=== PATIENT | female | born 1985 | race Caucasian/White ===

== ENCOUNTER 2016-12-24 10:13 | Inpatient (IN) | payer BC ==
[2016-12-24] VITALS (10 sets, daily range): BP systolic 88–120; BP diastolic 43–74
[~2016-12-24] VITALS: Ht 154.9 cm; Wt 117.9 kg
[2016-12-24] MEDS ORDERED: KETOROLAC TROMETHAMINE 30 MG/ML INJ. IV ONE (10:30)
[2016-12-24] MEDS ORDERED: IV NORMAL SALINE 1000ML BAG 1,000 ML IV ONE ×2 (10:30→14:00)
[2016-12-24] MEDS ORDERED: ONDANSETRON PF 4 MG/2 ML VIAL. IV ONE (10:30)
[2016-12-24 10:58] LABS: BASO # 0.1 x10^3/uL (0.0-0.2); BASO % 1 % (0-3); EOS % 1 % (0-3); HEMATOCRIT 36.6 % (36.0-47.0); HEMOGLOBIN 12.3 g/dL (12.0-15.5); LYMPH # 1.2 x10^3/uL (1.0-4.8); LYMPH % 11 % (24-48); MEAN CORPUSCULAR HEMOGLOBIN 26 pg (25-35); MEAN CORPUSCULAR HGB CONC 34 g/dL (31-37); MEAN CORPUSCULAR VOLUME 79 fL (79-100); MONO % 6 % (0-9); NEUT % 81 % (31-73); PLATELET COUNT 226 x10^3/uL (140-400); RED BLOOD COUNT 4.66 x10^6/uL (3.50-5.40); RED CELL DISTRIBUTION WIDTH 15.5 % (11.5-14.5); WHITE BLOOD COUNT 11.9 x10^3/uL (4.0-11.0)
[2016-12-24 11:00] LABS: BILIRUBIN,URINE NEGATIVE (NEG); GLUCOSE,URINE NEGATIVE (NEG); NITRITE,URINE NEGATIVE (NEG); PH,URINE 6.5; PROTEIN,URINE NEGATIVE (NEG-TRACE); UROBILINOGEN,URINE 0.2 mg/dL (0.2 mg/dL)
[2016-12-24 11:05] LABS: CALCIUM 8.8 mg/dL (8.5-10.1); CREATININE 0.9 mg/dL (0.6-1.0); GFR 72.6
[2016-12-24 11:11] LABS: ALBUMIN 3.5 g/dL (3.4-5.0); ALBUMIN/GLOBULIN RATIO 0.8 (1.0-1.7); TOTAL BILIRUBIN 0.5 mg/dL (0.2-1.0); TOTAL PROTEIN 7.9 g/dL (6.4-8.2)
[2016-12-24 11:16] LABS: BACTERIA,URINE FEW /HPF (0-FEW); RBC,URINE OCC /HPF (0-2); SQUAMOUS EPITHELIAL CELL,UR MANY /LPF; WBC,URINE OCC /HPF (0-4)
[2016-12-24] MEDS ORDERED: IOHEXOL 300 MG/ML 75 ML VIAL IV ONE (11:30)
[2016-12-24] MEDS ORDERED: CONTRAST GIVEN MC PRN (11:30)
--- NOTE | 2016-12-24 11:53 | PHYS DOC ---
Past Medical History Past Medical History: No Pertinent History Past Surgical History: Additional Past Surgical Histo: UTERINE POLUPS REMOVED Alcohol Use: None Drug Use: None Adult General Chief Complaint Chief Complaint: ABDOMINAL PAIN HPI HPI Patient is a 31 year old female who presents with mild bilateral upper abdominal pain radiating into the right lower quadrant that began this morning. Patient is also complaining of nausea with no vomiting with this pain. Denies any fever. Denies any chance she is . Denies any urgency frequency dysuria. Denies any chance she is . Denies any unusual vaginal discharge. Denies concerns for STDs. Review of Systems Review of Systems Constitutional: Denies fever or chills [] Eyes: Denies change in visual acuity, redness, or eye pain [] HENT: Denies nasal congestion or sore throat [] Respiratory: Denies cough or shortness of breath [] Cardiovascular: No additional information not addressed in HPI [] GI: Bilateral upper abdominal pain radiating to the right lower quadrant : Denies dysuria or hematuria [] Musculoskeletal: Denies back pain or joint pain [] Integument: Denies rash or skin lesions [] Neurologic: Denies headache, focal weakness or sensory changes [] Endocrine: Denies polyuria or polydipsia [] Current Medications Current Medications Current Medications Medications (Trade) Dose Ordered Sig/Gaudencio Start Time Stop Time Status Last Admin Dose Admin Bupivacaine HCl/ Epinephrine Bitart (Sensorcain-Mpf Epi 0.5%-1:217312) 30 ml STK-MED ONCE 12/24/16 14:36 12/24/16 14:37 DC Cefoxitin Sodium 100 ml @ As Directed STK-MED ONCE 12/24/16 14:56 12/24/16 14:57 DC Ceftriaxone Sodium 1 gm/ Sodium Chloride 50 ml @ 100 mls/hr Q24H 12/25/16 14:00 Ceftriaxone Sodium 2 gm/ Sodium Chloride 100 ml @ 200 mls/hr 1X ONCE 12/24/16 15:15 12/24/16 15:44 Ceftriaxone Sodium 50 ml @ 100 mls/hr ONCE ONCE 12/24/16 14:03 12/24/16 14:32 DC Cellulose 1 each STK-MED ONCE 12/24/16 14:35 12/24/16 14:36 DC Enoxaparin Sodium (Lovenox 40mg Syringe) 40 mg Q24H 12/24/16 15:30 UNV Fentanyl Citrate (Fentanyl 5ml Vial) 250 mcg STK-MED ONCE 12/24/16 14:49 12/24/16 14:50 DC Hydromorphone HCl (Dilaudid) 0.2 mg PRN Q1HR PRN 12/24/16 15:30 UNV Info (Do NOT chart on this entry -- for MONITORING) 1 each PRN DAILY PRN 12/24/16 11:30 12/26/16 11:29 Iohexol (Omnipaque 300 Mg/ml) 75 ml 1X ONCE 12/24/16 11:30 12/24/16 11:31 DC 12/24/16 11:58 75 ML Ketorolac Tromethamine (Toradol) 30 mg PRN Q6HRS PRN 12/24/16 15:30 12/29/16 15:29 UNV Metoclopramide HCl (Reglan) 10 mg PRN Q6HRS PRN 12/24/16 15:30 UNV Metronidazole 100 ml @ 100 mls/hr ONCE ONCE 12/24/16 14:15 12/24/16 15:14 DC Midazolam HCl (Versed) 2 mg STK-MED ONCE 12/24/16 14:58 12/24/16 14:59 DC Morphine Sulfate 4 mg PRN Q2HR PRN 12/24/16 14:00 12/25/16 13:59 Ondansetron HCl (Zofran) 4 mg PRN Q6HRS PRN 12/24/16 15:30 UNV Oxycodone/ Acetaminophen (Percocet 5/325) 2 tab PRN Q4HRS PRN 12/24/16 15:30 UNV Senna/Docusate Sodium (Senna Plus) 1 tab BID 12/24/16 21:00 UNV Sodium Chloride 1,000 ml @ 100 mls/hr Q10H 12/24/16 15:16 UNV Sodium Chloride (Normal Saline Flush) 3 ml QSHIFT PRN 12/24/16 15:30 UNV Allergies Allergies Allergies Coded Allergies Type Severity Reaction Last Updated Verified No Known Drug Allergies 12/24/16 No Physical Exam Physical Exam Constitutional: Well developed, well nourished, no acute distress, non-toxic appearance. [] HENT: Normocephalic, atraumatic, bilateral external ears normal, oropharynx moist, no oral exudates, nose normal. [] Eyes: PERRLA, EOMI, conjunctiva normal, no discharge. [] Neck: Normal range of motion, no tenderness, supple, no stridor. [] Cardiovascular:Heart rate regular rhythm, no murmur [] Lungs & Thorax: Bilateral breath sounds clear to auscultation [] Abdomen: Rounded abdomen. Bowel sounds normal, soft, mild tenderness to the right lower quadrant, no right upper quadrant tenderness, positive psoas sign, positive obturator sign, no guarding no masses, no pulsatile masses. [] Skin: Warm, dry, no erythema, no rash. [] Back: No tenderness, no CVA tenderness. [] Extremities: No tenderness, no cyanosis, no clubbing, ROM intact, no edema. [] Neurologic: Alert and oriented X 3, normal motor function, normal sensory function, no focal deficits noted. [] Psychologic: Affect normal, judgement normal, mood normal. [] Current Patient Data Vital Signs Vital Signs Date Time Temp Pulse Resp B/P (MAP) Pulse Ox O2 Delivery O2 Flow Rate FiO2 12/24/16 14:00 98.1 80 15 157/97 99 98.1 12/24/16 12:22 Room Air Lab Values Laboratory Tests Test 12/24/16 09:40 12/24/16 10:45 POC Urine HCG, Qualitative Hcg negative (Negative) White Blood Count 11.9 x10^3/uL (4.0-11.0) H Red Blood Count 4.66 x10^6/uL (3.50-5.40) Hemoglobin 12.3 g/dL (12.0-15.5) Hematocrit 36.6 % (36.0-47.0) Mean Corpuscular Volume 79 fL (79-100) Mean Corpuscular Hemoglobin 26 pg (25-35) Mean Corpuscular Hemoglobin Concent 34 g/dL (31-37) Red Cell Distribution Width 15.5 % (11.5-14.5) H Platelet Count 226 x10^3/uL (140-400) Neutrophils (%) (Auto) 81 % (31-73) H Lymphocytes (%) (Auto) 11 % (24-48) L Monocytes (%) (Auto) 6 % (0-9) Eosinophils (%) (Auto) 1 % (0-3) Basophils (%) (Auto) 1 % (0-3) Neutrophils # (Auto) 9.7 x10^3uL (1.8-7.7) H Lymphocytes # (Auto) 1.2 x10^3/uL (1.0-4.8) Monocytes # (Auto) 0.7 x10^3/uL (0.0-1.1) Eosinophils # (Auto) 0.1 x10^3/uL (0.0-0.7) Basophils # (Auto) 0.1 x10^3/uL (0.0-0.2) Urine Collection Type Clean catch Urine Color Yellow Urine Clarity Clear Urine pH 6.5 Urine Specific Hughes 1.015 Urine Protein Negative mg/dL (NEG-TRACE) Urine Glucose (UA) Negative mg/dL (NEG) Urine Ketones (Stick) Negative mg/dL (NEG) Urine Blood Negative (NEG) Urine Nitrite Negative (NEG) Urine Bilirubin Negative (NEG) Urine Urobilinogen Dipstick 0.2 mg/dL (0.2 mg/dL) Urine Leukocyte Esterase Negative (NEG) Urine RBC Occ /HPF (0-2) Urine WBC Occ /HPF (0-4) Urine Squamous Epithelial Cells Many /LPF Urine Bacteria Few /HPF (0-FEW) Urine Mucus Marked /LPF Sodium Level 141 mmol/L (136-145) Potassium Level 4.0 mmol/L (3.5-5.1) Chloride Level 104 mmol/L (98-107) Carbon Dioxide Level 25 mmol/L (21-32) Anion Gap 12 (6-14) Blood Urea Nitrogen 9 mg/dL (7-20) Creatinine 0.9 mg/dL (0.6-1.0) Estimated GFR (Cockcroft-Gault) 72.6 BUN/Creatinine Ratio 10 (6-20) Glucose Level 102 mg/dL (70-99) H Calcium Level 8.8 mg/dL (8.5-10.1) Total Bilirubin 0.5 mg/dL (0.2-1.0) Aspartate Amino Transferase (AST) 16 U/L (15-37) Alanine Aminotransferase (ALT) 28 U/L (14-59) Alkaline Phosphatase 68 U/L (46-116) Total Protein 7.9 g/dL (6.4-8.2) Albumin 3.5 g/dL (3.4-5.0) Albumin/Globulin Ratio 0.8 (1.0-1.7) L Lipase 105 U/L (73-393) Laboratory Tests 12/24/16 10:45 Laboratory Tests 12/24/16 10:45 EKG EKG [] Radiology/Procedures Radiology/Procedures [] Course & Med Decision Making Course & Med Decision Making Pertinent Labs and Imaging studies reviewed. (See chart for details) Patient is in the ED with complaints of bilateral upper abdominal pain radiating into the right lower quadrant that began this morning. Negative urine hCG, urine analysis is negative for infection. CBC with a WBC of 11.9 and a slight left shift. CMP would not acute findings. CT of the abdomen and pelvic was noted for acute appendicitis with no abscess. Consulted with Dr. Raza who accepted patient for admission. Patient was started on antibiotics and IV fluids. Dragon Disclaimer Dragon Disclaimer This electronic medical record was generated, in whole or in part, using a voice recognition dictation system. Departure Departure Impression: Primary Impression: Appendicitis, acute Disposition: 09 ADMITTED INPATIENT Condition: STABLE Referrals: NON,STAFF (PCP) Problem Qualifiers Primary Impression: Appendicitis, acute Acute appendicitis type: unspecified acute appendicitis type Qualified Codes : K35.80 - Unspecified acute appendicitis KEIKO HARGROVE WASTE CHOPPER Dec 24, 2016 11:53
--- NOTE | 2016-12-24 12:28 | RAD ---
CT of the abdomen and pelvis with contrast, 12/24/2016: History: Abdominal pain Multidetector CT imaging was performed following an IV bolus injection of iodinated contrast material. No IV contrast was administered for this study. No hepatic abnormality is detected. The gallbladder is unremarkable. The pancreas shows no abnormality. The spleen is within normal limits in size. The kidneys are unremarkable. The abdominal aorta is unremarkable. No abdominal or pelvic adenopathy is seen. A portion of the appendix is mildly enlarged measuring 11 mm in width. There is mild streaky increased density in the periappendiceal fat compatible with inflammation. The appearance suggests acute appendicitis. The bowel loops are not dilated. No free air or significant free fluid is evident in the abdomen or pelvis. IMPRESSION: Acute appendicitis. PQRS Compliance Statement: One or more of the following individualized dose reduction techniques were utilized for this examination: 1. Automated exposure control 2. Adjustment of the mA and/or kV according to patient size 3. Use of iterative reconstruction technique
[2016-12-24] MEDS ORDERED: MORPHINE SULFATE 4 MG/ML DISP.SYRIN. IV PRN (14:00)
[2016-12-24] MEDS ORDERED: ONDANSETRON PF 4 MG/2 ML VIAL. IV PRN ×3 (14:00→16:30)
[2016-12-24] MEDS ORDERED: SURGICEL HEMOSTAT 4X8 EACH. ONE (14:35)
[2016-12-24] MEDS ORDERED: BUPIVAC MPF-EPI 0.5%-1:200000 30 ML VIAL. ONE (14:36)
--- NOTE | 2016-12-24 14:40 | ACF ---
Admit Criteria Forms Admit Criteria Forms Admit Criteria Forms ABDOMINAL PAIN Clinical Indications for Admission to Inpatient Care ( kashia/check or initial the applicable condition/criteria): Admission is indicated for ANY ONE of the following (1)(2)(3)(4)(5)(6): [ ]I. Surgery needed that cannot be performed on ambulatory basis [ ]II. Peritoneal signs present (eg, rebound tenderness, rigidity) [ ]III. Evaluation requires patient to not eat or drink for extended period ( eg, more than 24 hours). [X ]IV. Inpatient admission required[B] rather than observation care (see Abdominal Pain: Observation Care guideline as appropriate) because of ANY ONE of the following(7)(8)(9): [ ] a) Hemodynamic instability [ ]b) Severe pain requiring acute inpatient management [X ]c) Identification of etiology or finding that requires inpatient care (eg, aortic dissection, free air,bowel ischemia)(10) [ ]d) Absent bowel sounds with complete ileus (11) [ ]e) Signs of intestinal obstruction[C] [ ]f) Suspected toxic megacolon [ ]g) Severe electrolyte abnormalities requiring inpatient care [ ]h) High fever or infection requiring inpatient admission as indicated by ANY ONE of the following (12)(13): [ ]i) Appropriate outpatient or observation care antimicrobial treatment unavailable, not effective, or not feasible [ ]ii) Documented bacteremia [ ]iii) Temperature greater than 104.9 degrees F (40.5 degrees C) (oral) [ ]iv) Temperature greater than 103.1 degrees F (39.5 degrees C) ( oral) or less than 96.8 degrees F (36 degrees C) (rectal) that does not respond to all emergency treatment measures [ ]i) IV fluid required rather than oral rehydration to replace significant ongoing (eg, for greater than 24 hours) losses (greater than 3 L/m2 per day)(14)(15) [ ]j) Percutaneous or open drainage (eg, abscess, biliary tract) procedures [ ]k) Parenteral nutrition regimen that must be implemented on inpatient basis [ ]l) Other condition, treatment, or monitoring requiring inpatient admission Extended stay beyond goal length of stay may be needed for (1)(3)(4)(10)(16): [ ]a) Surgery (e.g., colectomy, revascularization procedure) [ ]b) Persistent abdominal pain with suspected intra-abdominal process [ ]c) Diagnosed condition requiring continued stay (e.g., pancreatitis, complicated diverticulitis) The original [facility] [employer] content created by [facility] has been revised. The portions of the content which have been revised are identified through the use of italic text, and [facility] has neither reviewed nor approved the modified material.All other unmodified content is copyright [facility]. Please see references footnoted in the original [facility] [employer] edition 2014 PETER PARDO Dec 24, 2016 14:40
[2016-12-24] MEDS ORDERED: fentaNYL PF VIAL 250 MCG/5 ML VIAL ONE (14:49)
[2016-12-24] MEDS ORDERED: MIDAZOLAM HCL/PF 2 MG/2 ML VIAL. ONE (14:58)
[2016-12-24] MEDS: IV NORMAL SALINE 1000ML BAG 1,000 ML IV SCH (15:16)
--- NOTE | 2016-12-24 15:16 | PDOC ---
Provider Note Provider Note #[id number]--v and jimmy zamora. SALENA GRAY MD Dec 24, 2016 15:16
[2016-12-24] MEDS ORDERED: OXYC-323 PO (15:22)
[2016-12-24] MEDS ORDERED: KETOROLAC TROMETHAMINE 30 MG/ML INJ. IV PRN (15:30)
[2016-12-24] MEDS ORDERED: 0.9 % SODIUM CHLORIDE 10 ML DISP.SYRIN. IV PRN (15:30)
[2016-12-24] MEDS ORDERED: HYDROmorphone 2 MG/ML VIAL IV PRN ×2 (15:30→16:30)
[2016-12-24] MEDS ORDERED: METOCLOPRAMIDE HCL 10 MG/2 ML VIAL. IV PRN (15:30)
[2016-12-24] MEDS ORDERED: KETOROLAC 60 MG/2 ML INJ FOR OR. ONE (15:46)
[2016-12-24] MEDS ORDERED: LIDOCAINE 2% PF Vial for OR 5 ML VIAL. ONE (15:46)
[2016-12-24] MEDS ORDERED: PROPOFOL 20 ML IV ONE (15:46)
[2016-12-24] MEDS ORDERED: ONDANSETRON PF 4 MG/2 ML VIAL. ONE (15:49)
[2016-12-24] MEDS ORDERED: GLYCOPYRROLATE 1 MG/5 ML VIAL. ONE (15:49)
[2016-12-24] MEDS ORDERED: DEXAMETHASONE SOD PHOS 20 MG/5 ML VIAL. ONE (15:49)
[2016-12-24] MEDS ORDERED: NEOSTIGMINE 10 MG/10 ML VIAL. ONE (15:53)
--- NOTE | 2016-12-24 15:54 | HP ---
ADMIT DATE: 12/24/2016 CHIEF COMPLAINT: Abdominal pain. HISTORY OF PRESENT ILLNESS: The patient is a 31-year-old female who developed lower abdominal pain yesterday evening at about 1 in the morning. She is visiting [place] from her house in [place] and was staying at the [facility]. She had worsening abdominal pain through the night and then it localized to the right lower quadrant, it is worse with movement. It is associated with a feeling chilled and sweaty. It is a sharp, constant pain. It is associated with mild nausea, no vomiting. PAST MEDICAL HISTORY: Denies. PAST SURGICAL HISTORY: as well as hysteroscopy for uterine polyps. MEDICATIONS AT HOME: Ranitidine. ALLERGIES: Denies drug allergies. SOCIAL HISTORY: She is . She has a 3-year-old. Her and son are here with her. She is employed. She is a nonsmoker, nondrinker. FAMILY HISTORY: Noncontributory to this illness. REVIEW OF SYSTEMS: CONSTITUTIONAL: No documented fever. She felt subjectively sweaty and chilled at times. EYES: No abrupt loss of vision or double vision. EARS, NOSE, MOUTH, AND THROAT: No loss of hearing or ringing in ears. CARDIOVASCULAR: No chest pain or heart palpitations. RESPIRATORY: No cough, shortness of breath. GASTROINTESTINAL: See HPI. GENITOURINARY: No dysuria or hematuria. HEMATOLOGIC: No easy bleeding or bruising. MUSCULOSKELETAL: No new myalgias or arthralgias. DERMATOLOGIC: No new skin rashes or lesions. PSYCHIATRIC: No depression or anxiety. NEUROLOGIC: No headaches or seizures. ENDOCRINE: No polyuria or polydipsia. PHYSICAL EXAMINATION: VITAL SIGNS: Temperature is 98.1, pulse is 80, respiratory rate 15, blood pressure 157/97, O2 sats 99% on room air. GENERAL: Well-developed, well-nourished female in no acute distress. PSYCHIATRIC: She is cooperative with appropriate mood and affect. NEUROLOGIC: No resting tremor. She can move all 4 extremities without difficulty. She has equal salesperson automobiles strength bilaterally. EYES: Pupils are round and reactive. Sclerae are nonicteric. Mucous membranes are moist. Face symmetric. NECK: Supple, without cervical lymphadenopathy, no supraclavicular lymphadenopathy. Neck is nontender without masses. CARDIOVASCULAR: Palpation of her right radial pulse, 2+ right radial pulse. No pedal edema. RESPIRATORY: Chest wall is nontender to palpation. Respirations nonlabored. ABDOMEN: Soft, nondistended. She has a positive Rovsing sign. She is tender at McBurney's point. No rebound, no guarding. She is morbidly obese. She has a well-healed incision. DERMATOLOGIC: Exposed portions of her skin are unremarkable. LABORATORY DATA: Reviewed. White blood cell count 11.9, platelet count was normal. Comprehensive metabolic profile is unremarkable. CT scan, the report was reviewed, it demonstrates an acute appendicitis. Her weight is 260 pounds. ASSESSMENT: 1. Acute appendicitis. 2. Morbid obesity. I suspect that her BMI is over 40, I do not have a height on her, but just looking at her, overall she appears short, so even if her height was 5 feet 5 inches tall with a weight of 260 pounds, her BMI would be greater than 40, it would be approximately 43. I think that this is at least an accurate assessment and may be an underestimation of her actual BMI. PLAN: The patient is being taken to the operating room for laparoscopic appendectomy, possible open. Risk of bleeding, infection, need to convert to open, injury to intra-abdominal structures were all discussed with the patient. Questions answered. She desires to proceed with the procedure. Her was also present and had no further questions. She is from out of town and anticipates returning to [place] in the next couple of days. She has a family doctor back home. I told her that we would be happy to see her in followup if she wishes to return to [place] in about 2 weeks, but if she was feeling well and did not want to drive back to [place] for followup then I suggested that she call her regular doctor for routine followup. No lifting more than 20 pounds for 2 weeks. SALEAN GRAY MD DR: LOGAN/shawn JOB#: [id number] / [id number] TELLY
--- NOTE | 2016-12-24 15:55 | PDOC ---
BRIEF OPERATIVE NOTE Pre-Op Diagnosis #[id number] appendicitis lap appy geta ebl 10 ivf 300 k alma micah well tor rr stable spec appendix SALENA GRAY MD Dec 24, 2016 15:55
--- NOTE | 2016-12-24 16:08 | OP ---
DATE OF SURGERY: 12/24/2016 PREOPERATIVE DIAGNOSIS: Acute appendicitis. POSTOPERATIVE DIAGNOSIS: Acute appendicitis. PROCEDURE: Laparoscopic appendectomy. SURGEON: Salena Gray MD ANESTHESIA: General. ESTIMATED BLOOD LOSS: 10 mL. IV FLUIDS: 300 mL. INDICATIONS: The patient is a 31-year-old female who presents with acute appendicitis. FINDINGS: She had acute nonperforated, nongangrenous appendicitis. SPECIMEN: Appendix. PROCEDURE IN DETAIL: After informed consent was obtained, the patient was taken to the operating room and placed in supine position. After adequate induction of general anesthesia, she was prepped and draped in the usual sterile fashion. An umbilical skin incision was made with a scalpel, subcutaneous tissues with a hemostat. [facility] was used to grab the fascia and lift it anteriorly. Veress was used to gain access to the peritoneal cavity. Low opening pressures confirmed intraperitoneal placement of the Veress. Pneumoperitoneum to 15 mmHg was established followed by placement of 5 mm port. A 5 mm 30 degree lens revealed good port placement, no evidence of entry trauma. She was placed head down and rotated towards her left. Two additional ports were placed. The sites were injected with local anesthetic. Skin incisions were made and then a 5 mm suprapubic port and then 1 left lower quadrant 12 mm port was placed. The appendix was located in the right lower quadrant, was acutely inflamed. It was not gangrenous and not perforated. A window was made at the base of appendix with a [place]. Laparoscopic CHRISTIANA blue load stapler was used to divide the base of appendix. Laparoscopic CHRISTIANA white load was used to divide the mesoappendix. The appendix was placed in a laparoscopic bag and brought out through the left lower quadrant incision. The right lower quadrant was irrigated. The irrigant returned clear. The staple lines were intact and hemostatic. The irrigation fluid was evacuated from the right upper quadrant as well as the pelvis. One final look at the right lower quadrant revealed the staple lines to continue to be hemostatic. Fascial closure device was used to close the fascia at the left lower quadrant incision using 0 Vicryl suture x 2. The ports were removed under direct vision. They were hemostatic. Pneumoperitoneum was desufflated. Skin incisions were closed with 4-0 Monocryl in subcuticular fashion. Sterile dressings were placed. She tolerated the procedure well. There were no apparent complications. She is in the process of being transferred in stable condition to the recovery room. SALENA GRAY MD DR: LOGAN/shawn JOB#: [id number] / [id number]
[2016-12-24] MEDS ORDERED: IV RINGERS,LACTATED 1000ML 1,000 ML IV SCH (16:19)
[2016-12-24] MEDS ORDERED: fentaNYL PF VIAL 100 MCG/2 ML VIAL ONE (16:27)
[2016-12-24] MEDS: fentaNYL PF VIAL 100 MCG/2 ML VIAL IV PRN ×2 (16:29→17:10)
[2016-12-24] MEDS ORDERED: LIDOCAINE 1% 1 ML SYRINGE. ID PRN (16:30)
[2016-12-24] MEDS ORDERED: MORPHINE SULFATE 2 MG/ML DISP.SYRIN. IV PRN (16:30)
[2016-12-24] MEDS ORDERED: fentaNYL PF VIAL 100 MCG/2 ML VIAL IV PRN (16:30)
[2016-12-24] MEDS ORDERED: RANI150C PO (19:59)
[2016-12-24] MEDS ORDERED: ENOXAPARIN 40 MG/0.4 ML SYRINGE. SQ SCH (20:00)
[2016-12-24] MEDS: SENNOSIDES/DOCUSATE 8.6/50MG TABLET. PO SCH (21:46)
--- NOTE | 2016-12-24 22:16 | ACF ---
Admission Forms Criteria ABDOMINAL PAIN Clinical Indications for Admission to Inpatient Care ( seldovia/check or initial the applicable condition/criteria): Admission is indicated for ANY ONE of the following (1)(2)(3)(4)(5)(6): [X]I. Surgery needed that cannot be performed on ambulatory basis [ ]II. Peritoneal signs present (eg, rebound tenderness, rigidity) [ ]III. Evaluation requires patient to not eat or drink for extended period ( eg, more than 24 hours). [ ]IV. Inpatient admission required[B] rather than observation care (see Abdominal Pain: Observation Care guideline as appropriate) because of ANY ONE of the following(7)(8)(9): [ ] a) Hemodynamic instability [ ]b) Severe pain requiring acute inpatient management [ ]c) Identification of etiology or finding that requires inpatient care (eg, aortic dissection, free air,bowel ischemia)(10) [ ]d) Absent bowel sounds with complete ileus (11) [ ]e) Signs of intestinal obstruction[C] [ ]f) Suspected toxic megacolon [ ]g) Severe electrolyte abnormalities requiring inpatient care [ ]h) High fever or infection requiring inpatient admission as indicated by ANY ONE of the following (12)(13): [ ]i) Appropriate outpatient or observation care antimicrobial treatment unavailable, not effective, or not feasible [ ]ii) Documented bacteremia [ ]iii) Temperature greater than 104.9 degrees F (40.5 degrees C) (oral) [ ]iv) Temperature greater than 103.1 degrees F (39.5 degrees C) ( oral) or less than 96.8 degrees F (36 degrees C) (rectal) that does not respond to all emergency treatment measures [ ]i) IV fluid required rather than oral rehydration to replace significant ongoing (eg, for greater than 24 hours) losses (greater than 3 L/m2 per day)(14)(15) [ ]j) Percutaneous or open drainage (eg, abscess, biliary tract) procedures [ ]k) Parenteral nutrition regimen that must be implemented on inpatient basis [ ]l) Other condition, treatment, or monitoring requiring inpatient admission Extended stay beyond goal length of stay may be needed for (1)(3)(4)(10)(16): [ ]a) Surgery (e.g., colectomy, revascularization procedure) [ ]b) Persistent abdominal pain with suspected intra-abdominal process [ ]c) Diagnosed condition requiring continued stay (e.g., pancreatitis, complicated diverticulitis) The original [facility] content created by [facility] has been revised. The portions of the content which have been revised are identified through the use of italic text, and [facility] has neither reviewed nor approved the modified material.All other unmodified content is copyright [facility]. Please see references footnoted in the original [facility] edition 2015 Admission Criteria Met?: Yes JEREMY CHADWICK Dec 24, 2016 22:16
[2016-12-25] MEDS: IV NORMAL SALINE 1000ML BAG 1,000 ML IV SCH (01:16)
[2016-12-25 03:00] VITALS: BP 120/73
[2016-12-25] MEDS: oxyCODONE/APAP 5/325 1 TAB TABLET PO PRN ×2 (04:41→10:28)
[2016-12-25 06:49] LABS: BASO % 0 % (0-3); EOS % 0 % (0-3); HEMATOCRIT 34.1 % (36.0-47.0); HEMOGLOBIN 11.5 g/dL (12.0-15.5); LYMPH # 0.7 x10^3/uL (1.0-4.8); LYMPH % 7 % (24-48); MEAN CORPUSCULAR HEMOGLOBIN 27 pg (25-35); MEAN CORPUSCULAR HGB CONC 34 g/dL (31-37); MEAN CORPUSCULAR VOLUME 79 fL (79-100); MONO % 5 % (0-9); NEUT % 88 % (31-73); PLATELET COUNT 238 x10^3/uL (140-400); RED BLOOD COUNT 4.31 x10^6/uL (3.50-5.40); RED CELL DISTRIBUTION WIDTH 15.7 % (11.5-14.5); WHITE BLOOD COUNT 10.6 x10^3/uL (4.0-11.0)
[2016-12-25 06:57] LABS: CALCIUM 8.8 mg/dL (8.5-10.1); CREATININE 0.8 mg/dL (0.6-1.0); GFR 83.1; POTASSIUM 4.1 mmol/L (3.5-5.1)
[2016-12-25 07:35] LABS: PLT ESTIMATE ADEQUATE (ADEQUATE)
[2016-12-25 07:57] VITALS: BP 109/61
[2016-12-25] MEDS: SENNOSIDES/DOCUSATE 8.6/50MG TABLET. PO SCH (08:06)
[2016-12-25] MEDS ORDERED: ENOXAPARIN 40 MG/0.4 ML SYRINGE. SQ SCH (09:00)
--- NOTE | 2016-12-25 09:02 | PDOC ---
NICOLA MURILLO HAND WINDER 12/25/16 0902: SURGICAL PROGRESS NOTE Subjective tolerated diet, no nausea or emesis, just low appetite this AM + urinating pain improved from preop Vital Signs Vital Signs Date Time Temp Pulse Resp B/P (MAP) Pulse Ox O2 Delivery O2 Flow Rate FiO2 12/25/16 07:57 97.7 82 18 109/61 (77) 97 Room Air 97.7 12/24/16 22:18 1.0 I&O Intake and Output 12/25/16 07:00 Intake Total 2180 ml Output Total 110 ml Balance 2070 ml Intake Oral 380 ml IV Total 1800 ml Output Urine Total 100 ml Estimated Blood Loss 10 ml # Voids 4 General: Alert, Oriented X3, Cooperative, No acute distress Abdomen: Soft, Other (lap sites c/d/i, no erythema, mild incisional tenderness as expected postop) Labs Laboratory Tests Test 12/24/16 09:40 12/24/16 10:45 12/25/16 06:05 Bedside Urine HCG, Qualitative Hcg negative (Negative) White Blood Count 11.9 x10^3/uL (4.0-11.0) 10.6 x10^3/uL (4.0-11.0) Red Blood Count 4.66 x10^6/uL (3.50-5.40) 4.31 x10^6/uL (3.50-5.40) Hemoglobin 12.3 g/dL (12.0-15.5) 11.5 g/dL (12.0-15.5) Hematocrit 36.6 % (36.0-47.0) 34.1 % (36.0-47.0) Mean Corpuscular Volume 79 fL (79-100) 79 fL (79-100) Mean Corpuscular Hemoglobin 26 pg (25-35) 27 pg (25-35) Mean Corpuscular Hemoglobin Concent 34 g/dL (31-37) 34 g/dL (31-37) Red Cell Distribution Width 15.5 % (11.5-14.5) 15.7 % (11.5-14.5) Platelet Count 226 x10^3/uL (140-400) 238 x10^3/uL (140-400) Neutrophils (%) (Auto) 81 % (31-73) 88 % (31-73) Lymphocytes (%) (Auto) 11 % (24-48) 7 % (24-48) Monocytes (%) (Auto) 6 % (0-9) 5 % (0-9) Eosinophils (%) (Auto) 1 % (0-3) 0 % (0-3) Basophils (%) (Auto) 1 % (0-3) 0 % (0-3) Neutrophils # (Auto) 9.7 x10^3uL (1.8-7.7) 9.3 x10^3uL (1.8-7.7) Lymphocytes # (Auto) 1.2 x10^3/uL (1.0-4.8) 0.7 x10^3/uL (1.0-4.8) Monocytes # (Auto) 0.7 x10^3/uL (0.0-1.1) 0.5 x10^3/uL (0.0-1.1) Eosinophils # (Auto) 0.1 x10^3/uL (0.0-0.7) 0.0 x10^3/uL (0.0-0.7) Basophils # (Auto) 0.1 x10^3/uL (0.0-0.2) 0.0 x10^3/uL (0.0-0.2) Urine Collection Type Clean catch Urine Color Yellow Urine Clarity Clear Urine pH 6.5 Urine Specific [place] 1.015 Urine Protein Negative mg/dL (NEG-TRACE) Urine Glucose (UA) Negative mg/dL (NEG) Urine Ketones (Stick) Negative mg/dL (NEG) Urine Blood Negative (NEG) Urine Nitrite Negative (NEG) Urine Bilirubin Negative (NEG) Urine Urobilinogen Dipstick 0.2 mg/dL (0.2 mg/dL) Urine Leukocyte Esterase Negative (NEG) Urine RBC Occ /HPF (0-2) Urine WBC Occ /HPF (0-4) Urine Squamous Epithelial Cells Many /LPF Urine Bacteria Few /HPF (0-FEW) Urine Mucus Marked /LPF Sodium Level 141 mmol/L (136-145) 139 mmol/L (136-145) Potassium Level 4.0 mmol/L (3.5-5.1) 4.1 mmol/L (3.5-5.1) Chloride Level 104 mmol/L (98-107) 104 mmol/L (98-107) Carbon Dioxide Level 25 mmol/L (21-32) 22 mmol/L (21-32) Anion Gap 12 (6-14) 13 (6-14) Blood Urea Nitrogen 9 mg/dL (7-20) 7 mg/dL (7-20) Creatinine 0.9 mg/dL (0.6-1.0) 0.8 mg/dL (0.6-1.0) Estimated GFR (Cockcroft-Gault) 72.6 83.1 BUN/Creatinine Ratio 10 (6-20) Glucose Level 102 mg/dL (70-99) 119 mg/dL (70-99) Calcium Level 8.8 mg/dL (8.5-10.1) 8.8 mg/dL (8.5-10.1) Total Bilirubin 0.5 mg/dL (0.2-1.0) Aspartate Amino Transf (AST/SGOT) 16 U/L (15-37) Alanine Aminotransferase (ALT/SGPT) 28 U/L (14-59) Alkaline Phosphatase 68 U/L (46-116) Total Protein 7.9 g/dL (6.4-8.2) Albumin 3.5 g/dL (3.4-5.0) Albumin/Globulin Ratio 0.8 (1.0-1.7) Lipase 105 U/L (73-393) Segmented Neutrophils % 90 % (35-66) Band Neutrophils % 1 % (0-9) Lymphocytes % 7 % (24-48) Monocytes % 2 % (0-10) Platelet Estimate Adequate (ADEQUATE) Laboratory Tests Test 12/24/16 09:40 12/24/16 10:45 12/25/16 06:05 Bedside Urine HCG, Qualitative Hcg negative (Negative) White Blood Count 11.9 x10^3/uL (4.0-11.0) 10.6 x10^3/uL (4.0-11.0) Red Blood Count 4.66 x10^6/uL (3.50-5.40) 4.31 x10^6/uL (3.50-5.40) Hemoglobin 12.3 g/dL (12.0-15.5) 11.5 g/dL (12.0-15.5) Hematocrit 36.6 % (36.0-47.0) 34.1 % (36.0-47.0) Mean Corpuscular Volume 79 fL (79-100) 79 fL (79-100) Mean Corpuscular Hemoglobin 26 pg (25-35) 27 pg (25-35) Mean Corpuscular Hemoglobin Concent 34 g/dL (31-37) 34 g/dL (31-37) Red Cell Distribution Width 15.5 % (11.5-14.5) 15.7 % (11.5-14.5) Platelet Count 226 x10^3/uL (140-400) 238 x10^3/uL (140-400) Neutrophils (%) (Auto) 81 % (31-73) 88 % (31-73) Lymphocytes (%) (Auto) 11 % (24-48) 7 % (24-48) Monocytes (%) (Auto) 6 % (0-9) 5 % (0-9) Eosinophils (%) (Auto) 1 % (0-3) 0 % (0-3) Basophils (%) (Auto) 1 % (0-3) 0 % (0-3) Neutrophils # (Auto) 9.7 x10^3uL (1.8-7.7) 9.3 x10^3uL (1.8-7.7) Lymphocytes # (Auto) 1.2 x10^3/uL (1.0-4.8) 0.7 x10^3/uL (1.0-4.8) Monocytes # (Auto) 0.7 x10^3/uL (0.0-1.1) 0.5 x10^3/uL (0.0-1.1) Eosinophils # (Auto) 0.1 x10^3/uL (0.0-0.7) 0.0 x10^3/uL (0.0-0.7) Basophils # (Auto) 0.1 x10^3/uL (0.0-0.2) 0.0 x10^3/uL (0.0-0.2) Urine Collection Type Clean catch Urine Color Yellow Urine Clarity Clear Urine pH 6.5 Urine Specific [place] 1.015 Urine Protein Negative mg/dL (NEG-TRACE) Urine Glucose (UA) Negative mg/dL (NEG) Urine Ketones (Stick) Negative mg/dL (NEG) Urine Blood Negative (NEG) Urine Nitrite Negative (NEG) Urine Bilirubin Negative (NEG) Urine Urobilinogen Dipstick 0.2 mg/dL (0.2 mg/dL) Urine Leukocyte Esterase Negative (NEG) Urine RBC Occ /HPF (0-2) Urine WBC Occ /HPF (0-4) Urine Squamous Epithelial Cells Many /LPF Urine Bacteria Few /HPF (0-FEW) Urine Mucus Marked /LPF Sodium Level 141 mmol/L (136-145) 139 mmol/L (136-145) Potassium Level 4.0 mmol/L (3.5-5.1) 4.1 mmol/L (3.5-5.1) Chloride Level 104 mmol/L (98-107) 104 mmol/L (98-107) Carbon Dioxide Level 25 mmol/L (21-32) 22 mmol/L (21-32) Anion Gap 12 (6-14) 13 (6-14) Blood Urea Nitrogen 9 mg/dL (7-20) 7 mg/dL (7-20) Creatinine 0.9 mg/dL (0.6-1.0) 0.8 mg/dL (0.6-1.0) Estimated GFR (Cockcroft-Gault) 72.6 83.1 BUN/Creatinine Ratio 10 (6-20) Glucose Level 102 mg/dL (70-99) 119 mg/dL (70-99) Calcium Level 8.8 mg/dL (8.5-10.1) 8.8 mg/dL (8.5-10.1) Total Bilirubin 0.5 mg/dL (0.2-1.0) Aspartate Amino Transf (AST/SGOT) 16 U/L (15-37) Alanine Aminotransferase (ALT/SGPT) 28 U/L (14-59) Alkaline Phosphatase 68 U/L (46-116) Total Protein 7.9 g/dL (6.4-8.2) Albumin 3.5 g/dL (3.4-5.0) Albumin/Globulin Ratio 0.8 (1.0-1.7) Lipase 105 U/L (73-393) Segmented Neutrophils % 90 % (35-66) Band Neutrophils % 1 % (0-9) Lymphocytes % 7 % (24-48) Monocytes % 2 % (0-10) Platelet Estimate Adequate (ADEQUATE) Assessment/Plan s/p lap appy we discussed since from [place]--return to ER if fevers, persistent vomiting, worsening pain, incisions with redness/drainage/warmth Problems: SALENA GRAY MD 12/25/16 1150: SURGICAL PROGRESS NOTE Assessment/Plan addendum i saw and examined her. she is doing well and wants to go home. Problems: NICOLA MURILLO APRN Dec 25, 2016 09:02 SALENA GRAY MD Dec 25, 2016 11:50
--- NOTE | 2016-12-26 14:52 | PATHOLOGY ---
PATHOLOGY REPORT * * * * * * * * FINAL DIAGNOSIS: Appendix, laparoscopic appendectomy: - Acute appendicitis. COMMENT: There is no evidence of rupture. (JPm:pit; 12/26/2016) REPORT ELECTRONICALLY SIGNED BY: Mateus Sargent M.D. DATE/TIME: 12/26/2016 14:51 * * * * * * * * GROSS PATHOLOGY: Received in formalin labeled "Danilo Mistry, appendix," is an appendix measuring 5.2 cm in length and from 0.7 cm in diameter in the distal portion to 1.2 cm in the proximal portion with a large amount of attached mesoappendix. The serosal surface is payne alcantar, showing focal areas of payne white discoloration. Sectioning reveals a slightly dilated lumen throughout, which is essentially unremarkable. Brick Paver sections are submitted in cassette A1. (JPM; 12/25/16) INITIAL CPT CODE(S): A; 40194 Professional services performed by [facility] [address] Technical services performed by [facility] at [address] [place] [address]. SPECIMEN(S) RECEIVED: A.Appendix CLINICAL HISTORY: Abdominal pain, appendicitis PATIENT: DANILO MISTRY /AGE: 1003/04/1985 (Age: 31) PATIENT #: [id number] ALT CASE #: SPECIMEN COLLECTION DATE: 12/24/2016 SPECIMEN RECEIVED DATE: 12/25/2016 [facility] - [id number] [place] [address] - PHONE: [phone] * * * END OF REPORT * * *
== END 2016-12-25 11:00 | disposition home or self-care (01) | DRG 342 ==
LOC: ER 10:13 → OBSVTOIN 15:29 → 4 NORTH 15:29
PROVIDERS: ADMIT Surgery; ATTEND Surgery
PROC: 0DTJ4ZZ Resection of Appendix, Percutaneous Endoscopic Approach (ICD-10-PCS; principal; 2016-12-24 15:00)
DX: K35.80 Unspecified acute appendicitis (principal); Z68.42 Body mass index [BMI] 45.0-49.9, adult; E66.01 Morbid (severe) obesity due to excess calories
CPT/HCPCS: 36415; 74177; 80048; 80053; 81001; 81025; 83690; 85007; 85025; 96361; 96365; 96375; J0694; J0696; J1100; J1650; J1885; J2250; J2405; J2704; J2710; J2765; J3010; J3490; J7030; J7120; Q9967; 99285-25; J2001